=== PATIENT | female | born 1990 | race American Indian/Alaskan Native ===

== ENCOUNTER 2021-08-10 13:13 | Emergency (ER) | payer BC ==
--- NOTE | 2021-08-10 14:20 | Emergency Department Report ---
ED Female HPI - General Chief complaint: Vaginal Bleeding Stated complaint: VAGINAL BLEEDING Source: patient Mode of arrival: Ambulatory Limitations: No Limitations - History of Present Illness Initial comments: The patient was evaluated in the emergency department for symptoms described in the history of present illness. He/she was evaluated in the context of the global COVID-19 pandemic, which necessitated consideration that the patient might be at risk for infection with the virus that causes COVID-19. Institutional protocols and algorithms that pertain to the evaluation of patients at risk for COVID-19 are in a state of rapid change based on information released by regulatory bodies including the CDC and federal and state organizations. These policies and algorithms were followed during the patient's care in the emergency department. Please note that these policies, procedures and recommendations changed on a rapid basis. 30-year-old -Citizen Of [place] female presents to the emergency room complaining of heavy vaginal bleeding. Patient states she has been suffering from irregular menstrual periods for about 6 months. Patient states that she was recently placed on Provera for 10 days and she completed it on 08/05/2021. Patient states then her menstrual started on 08/06/2021. Patient states that this morning she was having excessive amount of bleeding. Patient states that she had called her AIR FILLER Dr. Tex Mathew and she made her an appointment to come in on Friday. Patient reports that she decided to be seen today. Patient is 1 para 1. She is states she has been on control as well. She is never had a blood transfusion denies any other past medical history currently takes no medications but does take [id number] vitamins and has no known drug allergies. MD Complaint: vaginal bleeding - Related Data Allergies Allergy/AdvReac Type Severity Reaction Status Date / Time No Known Allergies Allergy Verified 08/10/21 13:21 ED Review of Systems ROS: Stated complaint: VAGINAL BLEEDING Other details as noted in HPI Comment: All other systems reviewed and negative ED Past Medical Hx - Past Medical History Previous Medical History?: No - Surgical History Past Surgical History?: No ED Physical Exam - General Limitations: No Limitations General appearance: alert, in no apparent distress - Head Head exam: Present: atraumatic, normocephalic - Eye Eye exam: Present: normal appearance - ENT ENT exam: Present: mucous membranes moist - Neck Neck exam: Present: normal inspection, full ROM - Respiratory Respiratory exam: Present: normal lung sounds bilaterally. Absent: respiratory distress - Cardiovascular Cardiovascular Exam: Present: regular rate, normal rhythm. Absent: systolic murmur, diastolic murmur, rubs, gallop - GI/Abdominal GI/Abdominal exam: Present: soft, normal bowel sounds. Absent: distended, tenderness - Extremities Exam Extremities exam: Present: normal inspection - Back Exam Back exam: Present: normal inspection - Neurological Exam Neurological exam: Present: alert, oriented X3, normal gait - Psychiatric Psychiatric exam: Present: normal affect, normal mood - Skin Skin exam: Present: warm, dry, intact, normal color. Absent: rash ED Course Vital Signs 08/10/21 08/10/21 13:22 15:51 Pulse Rate 98 H 70 Respiratory 12 12 Rate Blood Pressure 144/92 Blood Pressure 130/89 [Left] O2 Sat by Pulse 95 99 Oximetry ED Medical Decision Making - Lab Data Result diagrams: 08/10/21 14:31 - Medical Decision Making 30-year-old -Citizen Of [place] female presents to the emergency room complaining of heavy vaginal bleeding. Patient states she has been suffering from irregular menstrual periods for about 6 months. Patient states that she was recently placed on Provera for 10 days and she completed it on 08/05/2021. Patient states then her menstrual started on 08/06/2021. Patient states that this morning she was having excessive amount of bleeding. Patient states that she had called her AIR FILLER Dr. Sydney Mathew and she made her an appointment to come in on Friday. Patient reports that she decided to be seen today. Patient is 1 para 1. She is states she has been on control as well. She is never had a blood transfusion denies any other past medical history currently takes no medications but does take [id number] vitamins and has no known drug allergies. CBC hCG. Critical care attestation.: If time is entered above; I have spent that time in minutes in the direct care of this critically ill patient, excluding procedure time. ED Disposition Clinical Impression: Dysmenorrhea Disposition: HOME / SELF CARE / HOMELESS Is pt being admited?: No Does the pt Need Aspirin: No Condition: Stable Instructions: Dysmenorrhea, [id number] Additional Instructions: Blood work shows no signs of anemia negative test. Follow-up with your AIR FILLER. Referrals: Your, AIR FILLER [Other] - 3-5 Days Forms: Work/School Release Form(ED)
[2021-08-10 14:56] LABS: Basophils % (Auto) 0.6 % (0.0-1.8); Eosinophils # (Auto) 0.1 K/mm3 (0.0-0.4); Eosinophils % (Auto) 1.4 % (0.0-4.3); Hematocrit 39.8 % (30.3-42.9); Hemoglobin 13.2 gm/dl (10.1-14.3); Lymphocytes # (Auto) 1.8 K/mm3 (1.2-5.4); Lymphocytes % (Auto) 31.4 % (13.4-35.0); Mean Corpuscular HGB Conc 33 % (30-34); Mean Corpuscular Volume 89 fl (79-97); Monocytes # (Auto) 0.4 K/mm3 (0.0-0.8); Monocytes % (Auto) 7.4 % (0.0-7.3); Platelet Count 199 K/mm3 (140-440); Red Blood Count 4.46 M/mm3 (3.65-5.03); Red Cell Distribution Width 13.8 % (13.2-15.2)
[2021-08-10 15:52] VITALS: BP 130/89
== END 2021-08-10 16:32 | disposition home or self-care (01) ==
LOC: ED 13:13
DX: N94.6 Dysmenorrhea, unspecified (principal)
CPT/HCPCS: 36415; 84702; 85025; 99283